=== PATIENT | male | born 1990 | race Caucasian/White ===

== ENCOUNTER 2017-10-03 13:10 | Day surgery (SDC) | payer OTHER ==
[~2017-10-03 13:10] MED LIST: Acetaminophen/HYDROcodone 325-5 MG Tab PO PRN; Bupivacaine 0.25%/EPINEPHrine 1:200,000 10 ML SDV INJECT ONE; Bupivacaine 25%/EPINEPHrine/PF 30 ML ONE; Lactated Ringers 1,000 ML IV SCH; ceFAZolin 2 GM in Premix Bag 1 BAG IV ONE
[2017-10-03] MEDS ORDERED: Lidocaine 2% 5 ML SDV ONE (13:56)
[2017-10-03] MEDS ORDERED: Propofol 200 MG/20 ML SDV ONE (13:56)
[2017-10-03] MEDS ORDERED: Midazolam 1 MG/ML 2 ML SDV ONE (13:56)
[2017-10-03] MEDS ORDERED: fentaNYL 100 MCG/2 ML SDV ONE ×2 (13:56→14:56)
[2017-10-03] MEDS ORDERED: ceFAZolin/Dextrose,Iso-Osmotic 2 GM/50 ML Duplex Bag IV ONE (14:00)
--- NOTE | 2017-10-03 14:02 | PCM.PREANE ---
Preanesthetic Assessment - Anesthesia/Transfusion/Family Hx Anesthesia History: Prior Anesthesia Without Reaction Family History of Anesthesia Reaction: No Transfusion History: No Prior Transfusion(s) - Review of Systems General: No Symptoms Pulmonary: No Symptoms Cardiovascular: No Symptoms Gastrointestinal: No Symptoms Neurological: No Symptoms Other: Reports: None - Physical Assessment NPO Status Date: 10/02/17 O2 Sat by Pulse Oximetry: 100 Respiratory Rate: 16 Vital Signs: Last Vital Signs Temp 36.4 C 10/03/17 13:35 Pulse 65 10/03/17 13:35 Resp 16 10/03/17 13:35 BP 150/74 H 10/03/17 13:35 Pulse Ox 100 10/03/17 13:35 Height: 1.99 m Weight: 90.718 kg ASA Class: 2 Mental Status: Alert & Oriented x3 Airway Class: Mallampati = 1 Dentition: Reports: Normal Dentition ROM/Head Extension: Full Lungs: Clear to Auscultation, Normal Respiratory Effort Cardiovascular: Regular Rate, Regular Rhythm - Allergies Allergies/Adverse Reactions: Allergies Allergy/AdvReac Type Severity Reaction Status Date / Time No Known Allergies Allergy Verified 10/02/17 16:30 - Anesthesia Plan Pre-Op Medication Ordered: None - Acknowledgements Anesthesia Type Planned: General Anesthesia Pt an Appropriate Candidate for the Planned Anesthesia: Yes Alternatives and Risks of Anesthesia Discussed w Pt/Guardian: Yes Pt/Guardian Understands and Agrees with Anesthesia Plan: Yes PreAnesthesia Questionnaire Cardiovascular History: Reports: Hypertension Other Cardiovascular History: had hypertension 10 years ago, did not take meds, resolved by diet change Musculoskeletal History: Reports: Back Pain, Chronic Neurological History: Reports: Migraines Other Neuro History: had migranes when hypertensive- none since BP has been under control - Past Surgical History Male Surgical History: Reports: Other (See Below) Other Male Surgeries/Procedures: 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25%/Epinephrine 1:200,000) 10 ml INJECT ONETIME ONE Stop: 10/03/17 08:01 Fentanyl (Sublimaze) Confirm Administered Dose 100 mcg .ROUTE .STK-MED ONE Stop: 10/03/17 13:57 Cefazolin Sodium/Dextrose 2 gm (/ Premix) 50 mls @ 100 mls/hr IV ONETIME ONE Stop: 10/03/17 08:29 Bupivacaine HCl/Epinephrine Bitart (Sensorc Mpf 0.25%-Epi 1:[id number]) Confirm Administered Dose 30 mls @ as directed .ROUTE .STK-MED ONE Stop: 10/03/17 07:28 Lidocaine (Xylocaine-Mpf 2%) Confirm Administered Dose 5 ml .ROUTE .STK-MED ONE Stop: 10/03/17 13:57 Midazolam HCl (Versed 1 Mg/Ml) Confirm Administered Dose 2 mg .ROUTE .STK-MED ONE Stop: 10/03/17 13:57 Propofol (Diprivan 20 Ml) Confirm Administered Dose 200 mg .ROUTE .STK-MED ONE Stop: 10/03/17 13:57
[2017-10-03] MEDS ORDERED: Morphine 10 MG/ML Syringe ONE (14:39)
[2017-10-03] MEDS ORDERED: fentaNYL 100 MCG/2 ML SDV IVPUSH PRN (14:50)
[2017-10-03] MEDS ORDERED: Ketorolac 30 MG/ML SDV ONE (14:53)
[2017-10-03] MEDS ORDERED: Ondansetron 4 MG/2 ML SDV ONE (14:53)
--- NOTE | 2017-10-03 15:51 | PCM.OPNOTE ---
- General Post-Op/Procedure Note Date of Surgery/Procedure: 10/03/17 Operative Procedure(s): left small finger extensor tendon repair and open reduction pin fixation of the left small finger middle phalanx fracture Pre Op Diagnosis: left small finger open middle phalanx fracture and extensor tendon laceration Post-Op Diagnosis: Same Anesthesia Technique: General LMA, Local Primary Surgeon: Angelina Higginbotham Complications: None Condition: Good
--- NOTE | 2017-10-03 15:52 | PCM.POSTAN ---
POST ANESTHESIA ASSESSMENT - MENTAL STATUS Mental Status: Alert, Oriented - RESPIRATORY Respiratory Status: Respiratory Rate WNL, Airway Patent, O2 Saturation Stable - CARDIOVASCULAR CV Status: Pulse Rate WNL, Blood Pressure Stable - GASTROINTESTINAL GI Status: No Symptoms - POST OP HYDRATION Hydration Status: Adequate & Stable
--- NOTE | 2017-10-03 16:32 | PCM48HPAN ---
Post Anesthesia Note - EVALUATION WITHIN 48HRS OF ANESTHETIC Vital Signs in Normal Range: Yes Patient Participated in Evaluation: Yes Respiratory Function Stable: Yes Airway Patent: Yes Cardiovascular Function Stable: Yes Hydration Status Stable: Yes Pain Control Satisfactory: Yes Nausea and Vomiting Control Satisfactory: Yes Mental Status Recovered: Yes Resp Rate: 14
--- NOTE | 2017-10-07 13:10 | OR ---
SURGEON: MIRTA WOLF MD DATE OF PROCEDURE: 10/03/2017 PREOPERATIVE DIAGNOSES: Left small finger open middle phalanx fracture and extensor tendon laceration. POSTOPERATIVE DIAGNOSES: Left small finger open middle phalanx fracture and extensor tendon laceration with digital nerve intact. The digital artery is compromise distally. PROCEDURE PERFORMED: Left small finger extensor tendon repair and open reduction and pin fixation of the left small finger middle phalanx fracture. ANESTHESIA: General LMA with local. INDICATIONS: Mr. Bailey is a 27-year-old gentleman with delayed presentation after a left small finger open middle phalanx fracture. He was seen at an outside ER and instructed on irrigation and closure for a distal phalanx fracture. Unfortunately, this was a missed diagnosis by the ER and it was not a distal phalanx fracture, but a middle phalanx fracture. This significantly changes to follow up care necessary and thorough discussion was had with the patient about this. We ideally treat open fractures within 6 hours and this is significantly delayed. We discussed risks and benefits and is slightly higher risk of infection. We will maintain him on antibiotics and we discussed using pins to be more appropriate given the slightly higher risk of infection. He understands and wishes to proceed. Risks were including, but not limited to, bleeding, infection, damage to underlying or overlying structures, possible need for future interventions, and possible scarring. This is also worked for safety issue. PROCEDURE IN DETAIL: After informed consent was obtained, placed on the chart, the patient was brought to the operating theater and laid in the supine position. After adequate general LMA and local anesthesia was obtained, the area was prepped and draped and a time-out was completed to confirm side and site. The arm was exsanguinated and the tourniquet was insufflated to 200 mmHg. Attention was then paid to copious irrigation of this wound. Once adequately irrigated, attention was then paid to exploration of the wound. Again, additional irrigation was provided as needed all around the exposed areas. The wound edges were trimmed. The digital nerves were appreciated to be intact and digital arteries were compromised with this significantly distal and this repair is not warranted, especially considering the delayed presentation and time frame. The flexor tendon does appear to be intact, but the extensor tendon is not. We had discussed with some repair of any other dilated structures, we wanted to proceed. Once adequately irrigated, attention was first paid to the repair of extensor tendon. Due to the shredded nature of it, there is a small central wisp and this was repaired in a [id number] fashion in order to capture as much of the remaining structures possible. Once sutured in place with a buried knot to prevent extrusion through the contused dorsal skin and maintaining the dorsal skin intact. The wound was then again irrigated and two 0.035 K-wires were placed in a crossed fashion through the middle phalanx after reduction. Fluoroscopic examination demonstrated appropriate alignment. Once adequately aligned, the area was then again copiously irrigated. The tendons were appreciated to be in good position and no tethering and the digital nerves were appreciated to still be intact. The skin was then closed in a horizontal mattress fashion using a chromic suture for absorption given the significant maturation of the tissues around this. Once adequately closed, the wound was dressed with Xeroform, fluffs, and Kerlix gauze dressing and a short- arm ulnar gutter splint. The patient tolerated this well. The finger was viable at the end of the case and desufflation of the tourniquet. FOLLOWUP INSTRUCTIONS: The patient will see us in 2 weeks for custom splint fabrication and recheck on the finger. He will call sooner if any issues or concerns. He does understand that given the vascular compromise, the finger is at high risk. All questions answered. Follow up in 2 weeks, sooner if any issues or concerns. KIA / ANA /[id number]
== END 2017-10-03 16:41 | disposition home or self-care (01) ==
LOC: MW.SDS 13:10
PROVIDERS: ATTEND Plastic Surgery
DX: S62.627A Displaced fracture of middle phalanx of left little finger, initial encounter for closed fracture (principal); X58.XXXA Exposure to other specified factors, initial encounter; Y92.89 Other specified places as the place of occurrence of the external cause
CPT/HCPCS: 26418; 26735; J0690; J1885; J2250; J2270; J2405; J3010; J7120; J2704